=== PATIENT | male | born 1980 | race Caucasian/White ===

== ENCOUNTER 2018-10-20 17:52 | Emergency (ER) | payer BC ==
[2018-10-20] MEDS ORDERED: MECLIZINE HCL 25 MG TABLET PO ONE (18:24)
[2018-10-20] MEDS ORDERED: DIAZEPAM 5 MG TABLET PO ONE (18:24)
[2018-10-20] MEDS ORDERED: HYDRALAZINE HCL INJ/PF 20 MG/1 ML SDV IV ONE (18:24)
--- NOTE | 2018-10-20 18:30 | ER Document Report ---
ED General - General Chief Complaint: Nausea/Vomiting Stated Complaint: DIZZINESS Time Seen by Provider: 10/20/18 18:15 TRAVEL OUTSIDE OF THE [place] IN LAST 30 DAYS: No - HPI Notes: Patient is a 38-year-old male that presents to the emergency department for chief complaint of dizziness. Patient reports acute onset of room spinning dizziness that occurred yesterday while at rest. He states anytime he moves his head to the right or left to the spinning increases. When he holds his head still the spinning stops. He states it is slightly worse when he is laying on his right side compared to lying on t he left side. He does report seasonal allergies and states he frequently has sinus congestion and coughing. Patient denies history of vertigo in the past. He denies any vision changes, numbness, weakness, chest pain or headache. Patient does report a few episodes of emesis which occur when the spinning gets severe. He denies any associated diarrhea or abdominal pain. Patient does report history of difficult to control hypertension and states he is taking labetalol 100 mg 2-3 times daily. He states yesterday his blood pressures were running in the 160s over 100s and he did take labetalol 3 times yesterday. He has had his labetalol twice so far today. Patient reports improvement of his symptoms after receiving Zofran and 1 L of LR by EMS prior to arrival. Past Medical History: Hypertension, REYMUNDO Past Surgical History: Reviewed in chart Social History: Denies drugs alcohol and tobacco Family History: Reviewed and noncontributory for presenting illness Allergies: Reviewed, see documented allergy list. REVIEW OF SYSTEMS: CONSTITUTIONAL : No fever No chills No diaphoresis No recent illness EENT: No vision changes No congestion No sore throat CARDIOVASCULAR: No chest pain No palpitations RESPIRATORY: No shortness of breath No cough No difficulty breathing GASTROINTESTINAL: No abdominal pain nausea vomiting No diarrhea GENITOURINARY: No dysuria No hematuria No difficulty urinating MUSCULOSKELETAL: No back pain No leg pain No arm pain SKIN: No rashes No lesions LYMPHATIC: No swollen, enlarged glands. NEUROLOGICAL: No lightheadedness No headache No weakness No paresthesias Dizziness PSYCHIATRIC: No anxiety No depression PHYSICAL EXAMINATION: Vital signs reviewed, nursing noted reviewed. GENERAL: Nontoxic, well-nourished and in no acute distress. HEAD: Atraumatic, normocephalic. EYES: Fatigable horizontal nystagmus bilaterally. PERRLA, extraocular movements intact, sclera anicteric, conjunctiva are normal. ENT: Bilateral nasal mucosal edema, moderate sized left middle ear effusion, minimal right ear effusion, TMs appear normal, no mastoid tenderness, oropharynx clear and patent. NECK: Normal range of motion, supple without lymphadenopathy LUNGS: Breath sounds clear to auscultation bilaterally and equal. No wheezes rales or rhonchi. HEART: Regular rate and rhythm without murmurs ABDOMEN: Soft, nontender, normoactive bowel sounds. No rebound, guarding, or rigidity. No masses appreciated. EXTREMITIES: Nontender, good range of motion, no pitting or edema. NEUROLOGICAL: NIH=0, No focal neurological deficits. Moves all extremities spontaneously Motor and sensory grossly intact on exam. PSYCH: Normal mood, normal affect. SKIN: Warm, Dry, normal turgor, no rashes or lesions noted on exposed skin - Related Data Allergies/Adverse Reactions: cefaclor [From Ceclor] Allergy (Verified 10/20/18 18:13) Penicillins Allergy (Verified 10/20/18 18:13) Sulfa (Sulfonamide Antibiotics) Allergy (Verified 10/20/18 18:13) chlorthalidone Adverse Reaction (Verified 10/20/18 18:13) Past Medical History - Social History Smoking Status: Never Smoker Chew tobacco use (# tins/day): No Frequency of alcohol use: None Drug Abuse: None Family History: Reviewed & Not Pertinent Patient has suicidal ideation: No Patient has homicidal ideation: No Physical Exam - Vital signs Vitals: Temp Pulse Resp BP Pulse Ox 98.8 F 74 18 193/116 H 100 10/20/18 18:02 10/20/18 18:02 10/20/18 18:02 10/20/18 18:02 10/20/18 18:02 Course - Re-evaluation Re-evalutation: 10/20/18 18:28 Vitals reviewed. Nursing notes reviewed. Patient had orthostatics lying and sitting which were negative however he was very dizzy with position changes therefore standing was not taken. Patient's symptoms are resolved when he is holding still and worse with position changes concerning for BPPV. He was given meclizine and Valium for symptomatic management. Patient does have elevated blood pressure with a history of hypertension and lab work was ordered to evaluate endorgan damage. 10/20/18 20:34 Patient's blood pressure has improved after giving him his evening dose of labetalol and 1 dose of IV hydralazine. Patient was reevaluated and had almost complete resolution of his vertigo symptoms. He is now able to sit and move his head right and left without any recurrence of symptoms. He has not had any active vomiting in the emergency room. His blood work shows no endorgan damage. Patient symptoms consistent with benign positional vertigo. He will continue taking his blood pressure medications as prescribed. He will be prescribed meclizine for the vertigo. He was also advised to begin taking Zyrtec or Claritin to help with his middle ear effusions. Patient will follow with his PCP for reevaluation in 1 to 2 days and will return for new or worsening symptoms. Laboratory 10/20/18 10/20/18 10/20/18 17:57 17:57 17:57 WBC 8.9 RBC 5.72 H Hgb 16.3 Hct 48.2 MCV 84 MCH 28.5 MCHC 33.8 RDW 13.8 Plt Count 275 Lymph % (Auto) 12.8 L Johnston % (Auto) 4.0 Eos % (Auto) 0.4 Baso % (Auto) 0.4 Absolute Neuts (auto) 7.3 Absolute Lymphs (auto) 1.1 Absolute Monos (auto) 0.4 Absolute Eos (auto) 0.0 Absolute Basos (auto) 0.0 Seg Neutrophils % 82.4 H Sodium 140.9 Potassium 4.2 Chloride 103 Carbon Dioxide 23 Anion Gap 15 BUN 14 Creatinine 1.22 Est GFR ( Amer) > 60 Est GFR (MDRD) Non-Af > 60 Glucose 119 H Calcium 10.2 Total Bilirubin 1.1 Direct Bilirubin 0.2 Neonat Total Bilirubin Not Reportable Neonat Direct Bilirubin Not Reportable Neonat Indirect Bili Not Reportable AST 42 ALT 65 Alkaline Phosphatase 74 Creatine Kinase 168 Troponin I < 0.012 Total Protein 7.6 Albumin 5.0 Urine Color Urine Appearance Urine pH Ur Specific [place] Urine Protein Urine Glucose (UA) Urine Ketones Urine Blood Urine Nitrite Urine Bilirubin Urine Urobilinogen Ur Leukocyte Esterase Urine WBC (Auto) Urine RBC (Auto) Urine Mucus (Auto) Urine Yeast (Budding) Urine Ascorbic Acid 10/20/18 19:05 WBC RBC Hgb Hct MCV MCH MCHC RDW Plt Count Lymph % (Auto) Johnston % (Auto) Eos % (Auto) Baso % (Auto) Absolute Neuts (auto) Absolute Lymphs (auto) Absolute Monos (auto) Absolute Eos (auto) Absolute Basos (auto) Seg Neutrophils % Sodium Potassium Chloride Carbon Dioxide Anion Gap BUN Creatinine Est GFR ( Amer) Est GFR (MDRD) Non-Af Glucose Calcium Total Bilirubin Direct Bilirubin Neonat Total Bilirubin Neonat Direct Bilirubin Neonat Indirect Bili AST ALT Alkaline Phosphatase Creatine Kinase Troponin I Total Protein Albumin Urine Color YELLOW Urine Appearance HAZY Urine pH 8.0 Ur Specific [place] 1.015 Urine Protein 30 H Urine Glucose (UA) NEGATIVE Urine Ketones NEGATIVE Urine Blood NEGATIVE Urine Nitrite NEGATIVE Urine Bilirubin NEGATIVE Urine Urobilinogen NEGATIVE Ur Leukocyte Esterase NEGATIVE Urine WBC (Auto) 1 Urine RBC (Auto) 1 Urine Mucus (Auto) RARE Urine Yeast (Budding) PRESENT Urine Ascorbic Acid NEGATIVE - Vital Signs Vital signs: Temp Pulse Resp BP Pulse Ox 98.8 F 80 14 197/111 H 99 10/20/18 18:02 10/20/18 18:14 10/20/18 19:01 10/20/18 19:01 10/20/18 19:01 - Laboratory Result Diagrams: 10/20/18 17:57 10/20/18 17:57 Laboratory results interpreted by me: 10/20/18 10/20/18 10/20/18 17:57 17:57 19:05 RBC 5.72 H Lymph % (Auto) 12.8 L Seg Neutrophils % 82.4 H Glucose 119 H Urine Protein 30 H - EKG Interpretation by Me Additional EKG results interpreted by me: 10/20/18 18:29 Interpreted by myself 1825: Normal sinus rhythm, rate 78, normal axis, no ectopy, no STEMI Discharge - Discharge Clinical Impression: BPPV (benign paroxysmal positional vertigo) Qualifiers: Laterality: bilateral Qualified Code(s): H81.13 - Benign paroxysmal vertigo, bilateral Hypertension Qualifiers: Hypertension type: unspecified Qualified Code(s): I10 - Essential (primary) hypertension Middle ear effusion Qualifiers: Laterality: bilateral Qualified Code(s): H65.93 - Unspecified nonsuppurative otitis media, bilateral Condition: Stable Disposition: HOME, SELF-CARE Instructions: Vertigo ([facility]) Additional Instructions: Please return to the emergency department if you have any worsening, or concern of your symptoms. Please return to the emergency department if you develop chest pain, difficulty breathing, severe abdominal pain, or ongoing vomiting. Please follow-up with your primary care physician in 2-3 days and any other recommended physicians. If prescribed, take all medications as directed. If you have any questions or concerns do not hesitate to return the emergency department for evaluation. Begin taking a Claritin or Zyrtec for seasonal allergies as prescribed on the la bel Begin taking Nasonex or Flonase as prescribed on the label Prescriptions: Meclizine HCl [Antivert 25 mg Tablet] 25 mg PO TID PRN #21 tablet PRN Reason: Dizziness Referrals: AMEENA RENEE MD [Primary Care Provider] - Follow up tomorrow
[2018-10-20 18:40] LABS: ABSOLUTE LYMPHOCYTES (AUTO) 1.1 10^3/uL (0.5-4.7); ABSOLUTE MONOCYTES (AUTO) 0.4 10^3/uL (0.1-1.4); ABSOLUTE NEUT (AUTO) 7.3 10^3/uL (1.7-8.2); BASOPHILS % (AUTO) 0.4 % (0-2); EOSINOPHILS % (AUTO) 0.4 % (0-6); HEMATOCRIT 48.2 % (37.9-51.0); HEMOGLOBIN 16.3 g/dL (13.5-17.0); LYMPHOCYTES % (AUTO) 12.8 % (13-45); MEAN CORPUSCULAR HEMOGLOBIN 28.5 pg (27.0-33.4); MEAN CORPUSCULAR HGB CONC 33.8 g/dL (32.0-36.0); MEAN CORPUSCULAR VOLUME 84 fl (80-97); PLATELET COUNT 275 10^3/uL (150-450); RED BLOOD COUNT 5.72 10^6/uL (4.35-5.55); RED CELL DISTRIBUTION WIDTH 13.8 % (11.5-14.0); SEGMENTED NEUTROPHILS % (AUTO) 82.4 % (42-78); TOTAL CELLS COUNTED % (AUTO) 100 %; WHITE BLOOD COUNT 8.9 10^3/uL (4.0-10.5)
[2018-10-20 19:00] LABS: ALKALINE PHOSPHATASE 74 U/L (38-126); ANION GAP 15 (5-19); ASPARTATE AMINO TRANSFERASE 42 U/L (17-59); BILIRUBIN,DIRECT 0.2 mg/dL (0.0-0.4); BILIRUBIN,TOTAL 1.1 mg/dL (0.2-1.3); BLOOD UREA NITROGEN 14 mg/dL (7-20); CALCIUM 10.2 mg/dL (8.4-10.2); CARBON DIOXIDE 23 mmol/L (22-30); CHLORIDE 103 mmol/L (98-107); CREATINE KINASE 168 U/L (55-170); GLUCOSE 119 mg/dL (75-110); POTASSIUM 4.2 mmol/L (3.6-5.0); TOTAL PROTEIN 7.6 g/dL (6.3-8.2)
[2018-10-20] MEDS ORDERED: LABETALOL HCL 200 MG TABLET PO ONE (19:04)
--- NOTE | 2018-10-20 19:27 | EKG REPORT ---
SEVERITY:- BORDERLINE ECG - SINUS RHYTHM BORDERLINE T ABNORMALITIES, INFERIOR LEADS : Confirmed by: Cinthia Carreon MD 20-Oct-2018 19:26:29
[2018-10-20 19:31] LABS: APPEARANCE,URINE HAZY; BILIRUBIN,URINE NEGATIVE (NEGATIVE); COLOR,URINE YELLOW; GLUCOSE, URINE NEGATIVE (NEGATIVE); KETONES,URINE NEGATIVE (NEGATIVE); LEUKOCYTE ESTERASE,URINE NEGATIVE (NEGATIVE); NITRITE,URINE NEGATIVE (NEGATIVE); PROTEIN,URINE 30 mg/dL (NEGATIVE); UROBILINOGEN,URINE NEGATIVE mg/dL (<2.0)
[2018-10-20 19:40] LABS: URINE SPECIFIC GRAVITY 1.015
[2018-10-20 21:09] VITALS: BP 172/110
[2018-10-20] MEDS ORDERED: ONDANSETRON HCL INJ/PF 4 MG/2 ML SDV IV ONE (21:11)
== END 2018-10-20 21:27 | disposition home or self-care (01) ==
LOC: ER 17:52
DX: H81.13 Benign paroxysmal vertigo, bilateral (principal); H65.93 Unspecified nonsuppurative otitis media, bilateral; I10 Essential (primary) hypertension; R11.2 Nausea with vomiting, unspecified; R09.81 Nasal congestion; R05 Cough; Z79.899 Other long term (current) drug therapy
CPT/HCPCS: 93005; 36415; 82550; 85025; 80053; 81001; 84484; 93010; J0360; J2405; 99284